=== PATIENT | female | born 1960 | race African-American/Black ===

== ENCOUNTER 2021-03-10 18:33 | Emergency (ER) | payer BC ==
[~2021-03-10] VITALS: Ht 170.2 cm; Wt 86.2 kg
[2021-03-10 18:33] VITALS: BP 175/94
[~2021-03-10 18:33] MED LIST: ALLEGRA ALLERG180 MG PO; COZAAR 50 MG TA50 M2 PO; IBUPROFEN 200200 M1 PO; IRON325 PO; UNICOMPLEX M TA1 TA1 PO
[2021-03-10] MEDS ORDERED: AMOXICILLIN500 M1 PO (19:11)
== END 2021-03-10 19:48 | disposition home or self-care (01) ==
LOC: ER 18:33
DX: H66.92 Otitis media, unspecified, left ear (principal); I10 Essential (primary) hypertension; Z79.891 Long term (current) use of opiate analgesic; Z79.899 Other long term (current) drug therapy